=== PATIENT | female | born 1990 | race Caucasian/White ===

== ENCOUNTER 2024-03-14 12:45 | Day surgery (SDC) | payer OTHER ==
[2024-03-14] MEDS ORDERED: DIPRIVAN 200 MG/20 ML IV ONE (14:17)
[2024-03-14] MEDS ORDERED: Lactated Ringers 1,000 ML IV ONE (15:08)
--- NOTE | 2024-03-14 16:40 | XRAY ---
Indication: Lumbar ELMER. Intraoperative fluoroscopy provided for 17 seconds. 2 digital spot image submitted for interpretation demonstrates posterior needle tip projecting posterior to lumbosacral junction interspace. Small amount of contrast injected for needle tip placement. Correlate with intraoperative findings/report.
--- NOTE | 2024-03-14 16:45 | XRAY ---
17 seconds of fluoroscopy was used in surgery for a lumbar ELMER.
== END 2024-03-14 15:00 | disposition home or self-care (01) ==
LOC: SDC-PAIN 12:45
PROVIDERS: ATTEND Psychiatry & Neurology Pain Medicine
DX: M54.16 Radiculopathy, lumbar region (principal)
CPT/HCPCS: 62323; 72100; 77003; J2704; Q9966

== ENCOUNTER 2024-05-10 10:11 | Day surgery (SDC) | payer BC, OTHER ==
[2024-05-10] MEDS ORDERED: Xylocaine-Mpf 2% 5 Ml Vial IJ ONE (10:12)
[2024-05-10] MEDS ORDERED: Lactated Ringers 1,000 ML IV ONE (11:39)
[2024-05-10] MEDS ORDERED: DIPRIVAN 200 MG/20 ML IV ONE (11:53)
--- NOTE | 2024-05-10 13:50 | XRAY ---
Indication: Bilateral L4-S1 MBB. Intraoperative fluoroscopy provided for 13 seconds. Single digital spot image submitted for interpretation demonstrates posterior needle tips projecting over the expected left and right L4-S1 nerve roots. Correlate with intraoperative findings/report.
--- NOTE | 2024-05-10 13:55 | XRAY ---
13 seconds of fluoroscopy was used in surgery for a bilateral L4-S1 MBB.
== END 2024-05-10 12:20 | disposition home or self-care (01) ==
LOC: SDC-PAIN 10:11
PROVIDERS: ATTEND Psychiatry & Neurology Pain Medicine
DX: M47.816 Spondylosis without myelopathy or radiculopathy, lumbar region (principal)
CPT/HCPCS: 64493; 64494; 72020; 77002; J2704

== ENCOUNTER 2024-06-06 11:36 | Day surgery (SDC) | payer BC, OTHER ==
[2024-06-06] MEDS ORDERED: BUPIVACAINE 0.5% VIAL IJ ONE (11:37)
[2024-06-06] MEDS ORDERED: Depo-Medrol 40 MG/ML IM ONE (11:37)
[2024-06-06] MEDS ORDERED: DIPRIVAN 200 MG/20 ML IV ONE (12:57)
[2024-06-06] MEDS ORDERED: Xylocaine-Mpf 2% 5 Ml Vial ONE ×2 (12:58→13:02)
--- NOTE | 2024-06-06 14:11 | XRAY ---
Indication: Bilateral L4-S1 MBB. Intraoperative fluoroscopy provided for 10 seconds. Single digital spot image submitted for interpretation demonstrates posterior needle tips projecting over the expected left and right L4-S1 nerve roots. Correlate with intraoperative findings/report.
[2024-06-06] MEDS ORDERED: Lactated Ringers 1,000 ML IV ONE (14:36)
--- NOTE | 2024-06-06 15:00 | XRAY ---
10 seconds of fluoroscopy was used in surgery for a bilateral L4-S1 MBB.
== END 2024-06-06 13:27 | disposition home or self-care (01) ==
LOC: SDC-PAIN 11:36
PROVIDERS: ATTEND Psychiatry & Neurology Pain Medicine
DX: M47.816 Spondylosis without myelopathy or radiculopathy, lumbar region (principal)
CPT/HCPCS: 64493; 64494; 72020; 77002; J2704

== ENCOUNTER 2024-07-11 11:07 | Day surgery (SDC) | payer BC, OTHER ==
[2024-07-11] MEDS ORDERED: Depo-Medrol 40 MG/ML IM ONE (11:08)
[2024-07-11] MEDS ORDERED: BUPIVACAINE 0.5% VIAL IJ ONE (11:08)
[2024-07-11] MEDS ORDERED: LIDOCAINE HCL 1% AMPUL 5 ML IJ ONE (11:08)
[2024-07-11] MEDS ORDERED: XYLOCAINE 1% HCL 20 ML MDV ONE (12:17)
[2024-07-11] MEDS ORDERED: DIPRIVAN 200 MG/20 ML IV ONE ×2 (12:45→13:10)
[2024-07-11] MEDS ORDERED: Xylocaine-Mpf 2% 5 Ml Vial ONE (13:11)
[2024-07-11] MEDS ORDERED: Lactated Ringers 1,000 ML IV ONE (14:19)
--- NOTE | 2024-07-11 15:02 | XRAY ---
Indication: Right L4-S1 RFA. Intraoperative fluoroscopy provided for 28 seconds. 4 digital spot image submitted for interpretation demonstrates posterior needle tips projecting over the expected right L4-S1 nerve roots. Correlate with intraoperative findings/report.
--- NOTE | 2024-07-11 16:56 | XRAY ---
28 seconds of fluoroscopy was used in surgery for a right L4-S1 RFA.
== END 2024-07-11 13:48 | disposition home or self-care (01) ==
LOC: SDC-PAIN 11:07
PROVIDERS: ATTEND Psychiatry & Neurology Pain Medicine
DX: M47.816 Spondylosis without myelopathy or radiculopathy, lumbar region (principal)
CPT/HCPCS: 36410; 64635; 64636; 72100; 77002; J2704

== ENCOUNTER 2024-07-18 12:00 | Day surgery (SDC) | payer BC, OTHER ==
[2024-07-18] MEDS ORDERED: LIDOCAINE HCL 1% AMPUL 5 ML IJ ONE (12:01)
[2024-07-18] MEDS ORDERED: BUPIVACAINE 0.5% VIAL IJ ONE (12:01)
[2024-07-18] MEDS ORDERED: Depo-Medrol 40 MG/ML IM ONE (12:01)
[2024-07-18] MEDS ORDERED: Versed 2 MG/2 ML Injection ONE (13:10)
[2024-07-18] MEDS ORDERED: DIPRIVAN 200 MG/20 ML IV ONE (13:30)
[2024-07-18] MEDS ORDERED: Xylocaine-Mpf 2% 5 Ml Vial ONE (13:30)
--- NOTE | 2024-07-18 16:29 | XRAY ---
Indication: Left L4-S1 RFA. Intraoperative fluoroscopy provided for 19 seconds. 3 digital spot images submitted for interpretation demonstrates posterior needle tips projecting over the expected left L4-S1 nerve roots. Correlate with intraoperative findings/report.
--- NOTE | 2024-07-18 16:56 | XRAY ---
19 seconds of fluoroscopy was used in surgery for a left L4-S1 RFA.
== END 2024-07-18 14:05 | disposition home or self-care (01) ==
LOC: SDC-PAIN 12:00
PROVIDERS: ATTEND Psychiatry & Neurology Pain Medicine
DX: M47.817 Spondylosis without myelopathy or radiculopathy, lumbosacral region (principal)
CPT/HCPCS: 64635; 64636; 72100; 77002; J2250; J2704

== ENCOUNTER 2025-02-07 09:05 | Day surgery (SDC) | payer BC ==
[2025-02-07] MEDS ORDERED: LIDOCAINE HCL 1% AMPUL 5 ML IJ ONE (09:06)
[2025-02-07] MEDS ORDERED: dexAMETHasone sodium phosphate IJ ONE (09:06)
[2025-02-07] MEDS ORDERED: propofoL IV ONE (10:55)
[2025-02-07] MEDS ORDERED: Xylocaine-Mpf 2% 5 Ml Vial ONE (10:56)
--- NOTE | 2025-02-07 11:52 | XRAY ---
Indication: Right piriformis injection. Intraoperative fluoroscopy provided for 14 seconds. Single digital spot image submitted for interpretation demonstrates posterior needle tip projecting over right piriformis. Small amount of contrast injected for needle tip placement. Correlate with intraoperative findings/report.
[2025-02-07] MEDS ORDERED: Lactated Ringers 1,000 ML IV ONE (12:21)
--- NOTE | 2025-02-07 12:23 | XRAY ---
14 seconds of fluoroscopy was used in surgery for a right piriformis injection.
== END 2025-02-07 11:27 | disposition home or self-care (01) ==
LOC: SDC-PAIN 09:05
PROVIDERS: ATTEND Psychiatry & Neurology Pain Medicine
DX: M79.18 Myalgia, other site (principal)
CPT/HCPCS: 20552; 72170; 77002; J1100; J2704; Q9966